=== PATIENT | male | born 1970 | race African-American/Black ===

== ENCOUNTER 2024-01-22 22:45 | Emergency (ER) | payer OTHER ==
[2024-01-22 23:01] VITALS: BP 194/120; PULSE 78; RESP 18; TEMP 98.4
== END 2024-01-23 00:15 | disposition home or self-care (01) ==
LOC: EC 22:45
DX: Z02.83 Encounter for blood-alcohol and blood-drug test (principal)
CPT/HCPCS: 99499

== ENCOUNTER 2024-02-21 00:56 | Emergency (ER) | payer OTHER ==
[2024-02-21 01:59] VITALS: BP 144/85; PULSE 84; RESP 18; TEMP 97.6
== END 2024-02-21 01:59 | disposition home or self-care (01) ==
LOC: EC 00:56
DX: Z51.81 Encounter for therapeutic drug level monitoring (principal)
CPT/HCPCS: 99499